=== PATIENT | female | born 2000 | race Caucasian/White ===

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

== ENCOUNTER 2019-02-03 18:22 | Emergency (ER) | payer MEDICAID ==
[~2019-02-03] VITALS: Ht 167.6 cm; Wt 70.9 kg
[2019-02-03 18:49] VITALS: BP 92/55
== END 2019-02-03 20:15 | disposition home or self-care (01) ==
LOC: ED 20:09
DX: J45.909 Unspecified asthma, uncomplicated (principal); Z76.0 Encounter for issue of repeat prescription; F17.200 Nicotine dependence, unspecified, uncomplicated; Z72.9 Problem related to lifestyle, unspecified; Z75.9 Unspecified problem related to medical facilities and other health care
CPT/HCPCS: 94640; 99283; J7620

== ENCOUNTER 2019-04-17 18:03 | Emergency (ER) | payer MEDICAID ==
[~2019-04-17] VITALS: Ht 167.6 cm; Wt 71.4 kg
[~2019-04-17 18:03] MED LIST: ALBU1.25 NEB
[2019-04-17 18:06] VITALS: BP 118/63
[2019-04-17] MEDS ORDERED: ALBUTEROL/IPRATROPIUM 2.5MG/0.5MG, 3 ML ONE (18:29)
[2019-04-17] MEDS ORDERED: ALBUTEROL/IPRATROPIUM 2.5MG/0.5MG, 3 ML NPPB ONE (18:30)
--- NOTE | 2019-04-17 19:07 | NUR ---
PT MEDICATED PER EMAR. 5 RIGHTS ADDRESSED.
--- NOTE | 2019-04-17 19:11 | NUR ---
Patient/Caregiver given discharge instructions and they have confirmed that they understand the instructions. Patient ambulatory with steady gait.
== END 2019-04-17 19:13 | disposition home or self-care (01) ==
LOC: ED 19:07
DX: J98.01 Acute bronchospasm (principal)
CPT/HCPCS: 94640; 99283; J7512; J7620

== ENCOUNTER 2019-04-25 02:17 | Emergency (ER) | payer MEDICAID ==
[~2019-04-25] VITALS: Ht 167.6 cm; Wt 72.3 kg
[2019-04-25 02:18] VITALS: BP 106/56
--- NOTE | 2019-04-25 02:38 | NUR ---
RN to bedside, patient has been assessed by provider. Patient is alert oriented well kept and well nourished. Patient is pleasant and reports having a history of asthma. RN appreciates inspiratory and expiratory wheezes throughout, worse on the left posterior thorax. RN noted provider has ordered a nebulizer treatment. Confirmed patient did attempt to use her rescue inhaler. Provided warm blanket and attached to continous pulsatile oxygenation sensor. Oriented patient to room and call light system. Patient verbalized understanding and expressed gratitude. Awaiting respiratory therapy to arrive at bedside.
[2019-04-25] MEDS ORDERED: PRED20TA PO (02:53)
[2019-04-25] MEDS ORDERED: ALBUTEROL/IPRATROPIUM 2.5MG/0.5MG, 3 ML NPPB ONE (03:00)
== END 2019-04-25 03:13 | disposition home or self-care (01) ==
LOC: ED 02:50
DX: J44.1 Chronic obstructive pulmonary disease with (acute) exacerbation (principal); J96.10 Chronic respiratory failure, unspecified whether with hypoxia or hypercapnia; J45.31 Mild persistent asthma with (acute) exacerbation; F17.200 Nicotine dependence, unspecified, uncomplicated
CPT/HCPCS: 94640; 99283; J7620

== ENCOUNTER 2019-06-03 00:47 | Emergency (ER) | payer MEDICAID ==
[~2019-06-03] VITALS: Ht 167.6 cm; Wt 70.0 kg
[~2019-06-03 00:47] MED LIST changes: +PRED20TA PO
[2019-06-03 00:52] VITALS: BP 101/59
[2019-06-03] MEDS ORDERED: HYDROcodone/APAP 5/325 TABLET PO STA (01:21)
[2019-06-03] MEDS ORDERED: HYDROcodone/APAP 5/325 TABLET ONE (01:37)
== END 2019-06-03 02:01 | disposition home or self-care (01) ==
LOC: ED 02:00
DX: K08.89 Other specified disorders of teeth and supporting structures (principal); J45.909 Unspecified asthma, uncomplicated; F17.200 Nicotine dependence, unspecified, uncomplicated
CPT/HCPCS: 99283

== ENCOUNTER 2019-07-15 18:14 | Emergency (ER) | payer MEDICAID ==
[~2019-07-15] VITALS: Ht 167.6 cm; Wt 73.6 kg
[2019-07-15 18:16] VITALS: BP 98/58
== END 2019-07-15 18:45 | disposition home or self-care (01) ==
LOC: ED 18:39
DX: J45.21 Mild intermittent asthma with (acute) exacerbation (principal); J45.990 Exercise induced bronchospasm; F17.210 Nicotine dependence, cigarettes, uncomplicated; Z76.0 Encounter for issue of repeat prescription; Z72.9 Problem related to lifestyle, unspecified
CPT/HCPCS: 99283

== ENCOUNTER 2019-08-01 10:24 | Emergency (ER) | payer MEDICAID ==
[~2019-08-01] VITALS: Ht 170.2 cm; Wt 71.3 kg
--- NOTE | 2019-08-01 10:37 | NUR ---
pt ambulated to room with a steady gait. pt in with c/o sinus problems x a few days
[2019-08-01 11:07] VITALS: BP 101/56
[2019-08-01 12:04] LABS: RAPID INFLUENZA A Negative (Negative); RAPID INFLUENZA B Negative (Negative)
--- NOTE | 2019-08-01 12:15 | NUR ---
Patient given discharge instructions and they have confirmed that they understand the instructions. pt verbalized understanding of medications and need to fill as well as recommended follow up. Patient ambulatory with steady gait.
== END 2019-08-01 12:35 | disposition home or self-care (01) ==
LOC: ED 12:20
DX: H65.01 Acute serous otitis media, right ear (principal); B34.9 Viral infection, unspecified; Z76.0 Encounter for issue of repeat prescription; J45.909 Unspecified asthma, uncomplicated
CPT/HCPCS: 71046; 87400; 99284